=== PATIENT | female | born 1945 | race Caucasian/White ===

== ENCOUNTER 2017-09-30 07:07 | Emergency (ER) | payer MEDICARE, OTHER ==
[~2017-09-30] VITALS: Ht 160 cm; Wt 49.6 kg
[~2017-09-30 07:07] MED LIST: BONI150T PO; CALC600T34 PO; OXYC-360 PO; STOO100C PO; TAB-TAB PO
[2017-09-30 07:10] VITALS: BP 168/72; PULSE 82; RESP 16; TEMP 98.3; O2SAT 97
--- NOTE | 2017-09-30 07:36 | PD ---
HPI Chief Complaint: GI Complaint Time Seen by Provider: 07:33 Travel History International Travel<30 days: No Contact w/Intl Traveler<30days: No Traveled to known affect area: No History of Present Illness HPI 72-year-old female patient presents to the ER today because she has had diarrhea last night, abdominal cramping pains, followed by passing blood and blood clots this morning. She denies any black stools. She has been nauseous and vomiting as well. She denies any recent fevers or any other issues. She states that she has recently been taking one ibuprofen a day to help with arthritis pain. She also reports feeling weak but denies any chest pains or trouble breathing. 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) Immune Disorder: No Musculoskeletal: No Neurologic: No Psychiatric: No Respiratory: No Tetanus Vaccination: < 5 Years Influenza Vaccination: No Past Surgical History Gynecologic Surgery: Yes (D AND C) Other Surgery: Yes Social History Alcohol Use: Yes (OCC) Tobacco Use: No Substance Use: No Allergies-Medications (Allergen,Severity, Reaction): Coded Allergies: No Known Allergies (Verified Adverse Reaction, Unknown, 09/30/17) Reported Meds & Prescriptions Reported Meds & Active Scripts Active Reported Estradiol 0.05 Mg/24 Hour Patch.tdsw Review of Systems Except as stated in HPI: all other systems reviewed are Neg Physical Exam Narrative GENERAL: Well-developed elderly white male female patient currently in mild distress. Awake and oriented 3. SKIN: Focused skin assessment warm/dry. HEAD: Atraumatic. Normocephalic. EYES: Pupils equal and round. No scleral icterus. No injection or drainage. ENT: No nasal bleeding or discharge. Mucous membranes pink and moist. NECK: Trachea midline. No JVD. Supple. CARDIOVASCULAR: Regular rate and rhythm. No murmur appreciated. RESPIRATORY: No accessory muscle use. Clear to auscultation. Breath sounds equal bilaterally. GASTROINTESTINAL: Abdomen soft, non-tender, nondistended. Hepatic and splenic margins not palpable. RECTAL EXAM: No masses or tenderness, stool is reddish, Hemoccult positive. MUSCULOSKELETAL: No obvious deformities. No clubbing. No cyanosis. No edema. NEUROLOGICAL: Awake and alert. No obvious cranial nerve deficits. Motor grossly within normal limits. Normal speech. PSYCHIATRIC: Appropriate mood and affect; insight and judgment normal. Data Data Last Documented VS Vital Signs Date Time Temp Pulse Resp B/P (MAP) Pulse Ox O2 Delivery O2 Flow Rate FiO2 09/30/17 07:10 98.3 82 16 168/72 (104) 97 Orders Orders Complete Blood Count With Diff (09/30/17 07:23) Basic Metabolic Panel (Bmp) (09/30/17 07:23) Prothrombin Time / Inr (Pt) (09/30/17 07:23) Type And Screen (09/30/17 07:23) Sodium Chlor 0.9% 1000 Ml Inj (Ns 1000 M (09/30/17 07:45) Pantoprazole Inj (Protonix Inj) (09/30/17 07:45) Ondansetron Inj (Zofran Inj) (09/30/17 07:45) Ct Abd/Pel W Iv Contrast(Rout) (09/30/17 08:40) Iohexol 350 Inj (Omnipaque 350 Inj) (09/30/17 09:21) Ed Discharge Order (09/30/17 10:07) Labs Laboratory Tests Test 09/30/17 07:47 White Blood Count 13.3 TH/MM3 Red Blood Count 4.26 MIL/MM3 Hemoglobin 13.4 GM/DL Hematocrit 38.7 % Mean Corpuscular Volume 90.8 FL Mean Corpuscular Hemoglobin 31.4 PG Mean Corpuscular Hemoglobin Concent 34.5 % Red Cell Distribution Width 11.9 % Platelet Count 351 TH/MM3 Mean Platelet Volume 8.6 FL Neutrophils (%) (Auto) 86.2 % Lymphocytes (%) (Auto) 5.1 % Monocytes (%) (Auto) 3.3 % Eosinophils (%) (Auto) 0.8 % Basophils (%) (Auto) 4.6 % Neutrophils # (Auto) 11.4 TH/MM3 Lymphocytes # (Auto) 0.7 TH/MM3 Monocytes # (Auto) 0.4 TH/MM3 Eosinophils # (Auto) 0.1 TH/MM3 Basophils # (Auto) 0.6 TH/MM3 CBC Comment DIFF FINAL Differential Comment Prothrombin Time 10.6 SEC Prothromb Time International Ratio 1.0 RATIO Blood Urea Nitrogen 13 MG/DL Creatinine 0.61 MG/DL Random Glucose 111 MG/DL Calcium Level 8.9 MG/DL Sodium Level 137 MEQ/L Potassium Level 3.5 MEQ/L Chloride Level 101 MEQ/L Carbon Dioxide Level 25.2 MEQ/L Anion Gap 11 MEQ/L Estimat Glomerular Filtration Rate 97 ML/MIN MDM Medical Decision Making Medical Screen Exam Complete: Yes Emergency Medical Condition: Yes Medical Record Reviewed: Yes Interpretation(s) Laboratory Tests Test 09/30/17 07:47 White Blood Count 13.3 TH/MM3 (4.0-11.0) Neutrophils (%) (Auto) 86.2 % (16.0-70.0) Lymphocytes (%) (Auto) 5.1 % (9.0-44.0) Basophils (%) (Auto) 4.6 % (0.0-2.0) Neutrophils # (Auto) 11.4 TH/MM3 (1.8-7.7) Lymphocytes # (Auto) 0.7 TH/MM3 (1.0-4.8) Basophils # (Auto) 0.6 TH/MM3 (0-0.2) Random Glucose 111 MG/DL (74-106) Last 24 hours Impressions Abdomen/Pelvis CT 09/30/17 0840 Signed Impressions: Service Date/Time: Saturday, September 30, 2017 09:13 - CONCLUSION: Probably early colitis or diverticulitis sigmoid colon without abscess or ascites. I would favor colitis. Kingsley Otoole MD FACR Differential Diagnosis Gastroenteritis versus colitis versus GI bleed versus dehydration versus metabolic issues Narrative Course Abdomen is fairly benign. Rectal exam shows just this tiny trace of blood. I do not see any signs of melena or blood clots currently. Her Hemoccult is positive. Rectal exam was fairly unremarkable otherwise. Her H&H is stable. Vital signs are stable. CAT scan shows colitis which is the likely culprit. Patient states that she had eaten eggs which were not completely cooked a few days ago and she was worried. At this point, considering her symptoms and possible food borne illness exposure, my plan would be to start her on Cipro. We will also give her nausea medication. We will have her follow-up with her primary care doctor. Return for worsening in symptoms as needed. The plan has been discussed with her and she states understanding. [facility] Point of Care Internal Pos. & Neg. Controls: Passed Fecal Specimen Occult Blood: Positive Diagnosis Primary Impression: Colitis Additional Impression: Blood in the stool Med/Other Pt SpecificInfo: Prescription(s) given Scripts Ondansetron Odt (Zofran Odt) 4 Mg Tab 4 MG SL Q6HR Y for Nausea/Vomiting, #7 TAB 0 Refills Prov: Mikki Lyles MD 09/30/17 Ciprofloxacin (Cipro) 500 Mg Tab 500 MG PO BID for Infection for 7 Days, #14 TAB 0 Refills Prov: Mikki Lyles MD 09/30/17 Disposition: 01 DISCHARGE HOME Condition: Stable Mikki Lyles MD Sep 30, 2017 07:36
[2017-09-30] MEDS ORDERED: ONDANSETRON HCL 4 MG/2 ML VIAL IV PUSH ONE (07:45)
[2017-09-30] MEDS ORDERED: SODIUM CHLOR 0.9% 1000 ML INJ 1,000 ML IV ONE (07:45)
[2017-09-30] MEDS ORDERED: PANTOPRAZOLE SODIUM 40 MG VIAL IV PUSH ONE (07:45)
[2017-09-30 08:03] LABS: AUTOMATED NEUTROPHIL # 11.4 TH/MM3 (1.8-7.7); BASOPHIL # 0.6 TH/MM3 (0-0.2); BASOPHIL % 4.6 % (0.0-2.0); EOSINOPHIL # 0.1 TH/MM3 (0-0.4); EOSINOPHIL % 0.8 % (0.0-4.0); HEMATOCRIT 38.7 % (35.0-46.0); HEMOGLOBIN 13.4 GM/DL (11.6-15.3); LYMPH % 5.1 % (9.0-44.0); LYMPHOCYTE # 0.7 TH/MM3 (1.0-4.8); MEAN CELL VOLUME 90.8 FL (80.0-100.0); MEAN CORPUSCULAR HEMOGLOBIN 31.4 PG (27.0-34.0); MEAN CORPUSCULAR HGB CONC 34.5 % (32.0-36.0); MEAN PLATELET VOLUME 8.6 FL (7.0-11.0); MONO % 3.3 % (0.0-8.0); MONOCYTE # 0.4 TH/MM3 (0-0.9); NEUT % 86.2 % (16.0-70.0); PLATELET COUNT 351 TH/MM3 (150-450); RED BLOOD COUNT 4.26 MIL/MM3 (4.00-5.30); RED CELL DISTRIBUTION WIDTH 11.9 % (11.6-17.2); WHITE BLOOD COUNT 13.3 TH/MM3 (4.0-11.0)
[2017-09-30] MEDS ORDERED: ESTR1PAT9 (08:06)
[2017-09-30 08:14] LABS: BICARBONATE 25.2 MEQ/L (21.0-32.0); CALCIUM 8.9 MG/DL (8.5-10.1)
[2017-09-30 08:15] LABS: PROTHROMBIN TIME - PATIENT 10.6 SEC (9.8-11.6)
[2017-09-30 08:18] LABS: CREATININE 0.61 MG/DL (0.50-1.00)
[2017-09-30] MEDS ORDERED: IOHEXOL 350 MG/ML 10 ML VIAL (for RAD DIAG) IVCONTRAST ONE (09:21)
--- NOTE | 2017-09-30 09:35 | RADRPT ---
EXAM DATE/TIME: 09/30/2017 09:13 [facility] COMPARISON: No previous studies available for comparison. INDICATIONS : Nausea, vomiting and bloody diarrhea. Abdominal cramping. IV CONTRAST: 85 cc Omnipaque 350 (iohexol) IV ORAL CONTRAST: No oral contrast ingested. RADIATION DOSE: 5.10 CTDIvol (mGy) MEDICAL HISTORY : None SURGICAL HISTORY : Hysterectomy. ENCOUNTER: Initial ACUITY: 1 day PAIN SCALE: 0/10 LOCATION: Abdomen. TECHNIQUE: Volumetric scanning of the abdomen and pelvis was performed. Using automated exposure control and ad justment of the mA and/or kV according to patient size, radiation dose was kept as low as reasonably achievable to obtain optimal diagnostic quality images. DICOM format image data is available electro nically for review and comparison. FINDINGS: Lower lungs are clear. Mild compensated cardiomegaly without pleural effusion or failure Liver and gallbladder are unremarkable Spleen and pancreas appear normal Adrenal glands appear normal There is symmetrical renal function without stone or mass Cecum, transverse and descending colon unremarkable In the sigmoid there is bowel wall thickening that could be an early colitis. There are moderate div erticula in the sigmoid colon again with associated bowel wall thickening. There is no abscess. Uterus and adnexal regions are unremarkable. Abdominal ramirez intact There is no adenopathy. There is no ascites. CONCLUSION: Probably early colitis or diverticulitis sigmoid colon without abscess or ascites. I would favor colitis. Kingsley Otoole MD FACR on September 30, 2017 at 9:30 Board Certified Radiologist. This report was verified electronically.
[2017-09-30] MEDS ORDERED: ZOFR4TAB3 SL (10:11)
[2017-09-30] MEDS ORDERED: CIPR-9 PO (10:11)
[2017-09-30 10:33] VITALS: BP 139/66; PULSE 74; RESP 18; O2SAT 100
== END 2017-09-30 10:41 | disposition home or self-care (01) ==
LOC: PHED 07:07
DX: K52.9 Noninfective gastroenteritis and colitis, unspecified (principal); K92.1 Melena; R11.2 Nausea with vomiting, unspecified; R53.1 Weakness; Z87.448 Personal history of other diseases of urinary system
CPT/HCPCS: 74177; 80048; 85025; 85610; 86850; 86900; 86901; 96361; 96374; 96375; 99285; C9113; J2405; J7030; Q9967